=== PATIENT | female | born 1955 ===

== ENCOUNTER 2021-12-08 13:05 | Outpatient (CLI) | payer BC, SELFPAY ==
--- NOTE | 2021-12-08 13:30 | CRLHL7_ITS ---
For Patients: As a result of the Century Cures Act, medical imaging exams and procedure reports are released immediately into your electronic medical record. You may view this report before your referring provider. If you have questions, please contact your health care provider. DXA BONE MINERAL DENSITY STUDY Current height (in): 65.0. Weight (lb): 115.0. Menopause age: 51. Ethnicity: White. 1. Have you had a previous hip or vertebral fracture? No. 2. Have you had any fractures during your adult life which did not result from significant trauma (e.g., auto accident)? No. 3. Did either of your parents have a hip fracture? No. 4. Do you smoke? No. 5. Have you ever taken Glucocorticoids? No. 6. Do you have rheumatoid arthritis? No. 7. Do you have secondary osteoporosis? No. 8. Do you drink 3 or more alcoholic drinks per day? No. 9. Are you being treated for osteoporosis? No. 10. Have you ever taken any of the following medications: Actonel, Evista, Fosamax, Miacalcin, Reclast, Boniva, Forteo, HRT (i.e. estrogen/hormone therapy), Protelos, Prolia, Vitamin D, Calcium, other ??? please specify. ANSWER: Yes, Fosamax, vitamin D, calcium. 11. Do you have any of the following medical conditions: Anorexia or bulimia, asthma or emphysema, end stage renal disease, hyperparathyroidism, any seizure disorders, cancer, inflammatory bowel diseases, hysterectomy, other ??? please specify. ANSWER: No. 12. What was your maximum height (inches)? 66. 13. Do you perform weight bearing exercise regularly? No. 14. Do you regularly consume dairy products? No. 15. Do you drink caffeinated beverages? No. 16. At what age did your period start? 13. 17. Are you premenopausal? No. 18. How many full term pregnancies have you had? 2. 19. Have you ever missed your period for more than 6 months in a row (not including or menopause)? No. TECHNIQUE: Bone mineral density study was performed using the [employer]. FINDINGS: The results of the study expressed as bone mineral density (BMD) are as follows: Lumbar spine L1 to L4: BMD: 0.632 g/cm2. T-score: -3.8. Z-score: -2.0. Neck Left: BMD: 0.496 g/cm2. T-score: -3.2. Z-score: -1.6. Right: BMD: 0.504 g/cm2. T-score: -3.1. Z-score: -1.6. Total Left: BMD: 0.626 g/cm2. T-score: -2.6. Z-score: -1.3. Right: BMD: 0.641 g/cm2. T-score: -2.5. Z-score: -1.2. IMPRESSION: Osteoporosis. Carlos Eduardo Rivero M.D. Diagnostic Radiologist [email or web address] / be/Dictated by: Carlos Eduardo Rivero MD @ 12/08/2021 3:42:00 PM (Electronically Signed)
== END 2021-12-08 13:06 | disposition home or self-care (01) ==
PROVIDERS: PCP Emergency Medicine; Visit Provider Emergency Medicine
DX: M85.9 Disorder of bone density and structure, unspecified (principal); M81.0 Age-related osteoporosis without current pathological fracture
CPT/HCPCS: 77080

== ENCOUNTER 2021-12-10 11:22 | Outpatient (CLI) | payer BC, SELFPAY ==
[2021-12-10 13:04] LABS: Chloride* 103 mmol/L (96-114); Potassium* 4.5 mmol/L (3.6-5.1); Sodium* 141 mmol/L (135-149)
[2021-12-10 13:06] LABS: Cholesterol* 291 mg/dL (90-199)
[2021-12-10 13:07] LABS: Blood Urea Nitrogen* 21 mg/dL (7-30); Calcium* 9.9 mg/dL (8.4-10.6); Carbon Dioxide* 32 mmol/L (20-32); Creatinine* 0.9 mg/dL (0.5-1.5); Estimated Glomerular Filt Rate 71 ml/min; Glucose* 85 mg/dL (60-115); Triglycerides* 85 mg/dL (40-149)
[2021-12-10 13:08] LABS: HDL Cholesterol* 81 mg/dL (>=50); LDL Cholesterol Calculated 193 mg/dL (<100)
[2021-12-10 13:17] LABS: Vitamin D 25 Hydroxy* 67 ng/mL (30-80)
== END 2021-12-10 11:23 | disposition home or self-care (01) ==
PROVIDERS: PCP Emergency Medicine; Visit Provider Emergency Medicine
DX: E78.5 Hyperlipidemia, unspecified (principal); M85.9 Disorder of bone density and structure, unspecified; E05.00 Thyrotoxicosis with diffuse goiter without thyrotoxic crisis or storm
CPT/HCPCS: 80048; 80061; 82306; 84443

== ENCOUNTER 2021-12-14 14:48 | Outpatient (CLI) | payer BC, SELFPAY ==
[2021-12-14 21:38] LABS: Albumin* 4.5 g/dL (3.3-5.0)
[2021-12-14 21:41] LABS: Alkaline Phosphatase* 110 U/L (40-150); Aspartate Amino Transferase* 29 U/L (12-35); Bilirubin Total* 0.2 mg/dL (0.1-1.5); Phosphorus* 4.1 mg/dL (2.5-4.5); Total Protein* 6.9 g/dL (6.0-8.3)
[2021-12-14 21:42] LABS: Alanine Aminotransferase* 19 U/L (4-35)
== END 2021-12-14 14:49 | disposition home or self-care (01) ==
PROVIDERS: PCP Emergency Medicine; Visit Provider Emergency Medicine
DX: E78.5 Hyperlipidemia, unspecified (principal); M81.0 Age-related osteoporosis without current pathological fracture; Z82.49 Family history of ischemic heart disease and other diseases of the circulatory system
CPT/HCPCS: 80076; 84100

== ENCOUNTER 2022-03-23 10:29 | Outpatient (CLI) | payer BC, SELFPAY ==
--- NOTE | 2022-03-23 10:45 | CRLHL7_ITS ---
For Patients: As a result of the Century Cures Act, medical imaging exams and procedure reports are released immediately into your electronic medical record. You may view this report before your referring provider. If you have questions, please contact your health care provider. BILATERAL SCREENING MAMMOGRAM WITH COMPUTER-AIDED DETECTION AND TOMOSYNTHESIS TECHNIQUE: CC and MLO views were obtained. These mammographic images have been obtained using full-field digital technique. These mammographic images were interpreted with the benefit of computer-aided detection. Breast Tomosynthesis was used in this interpretation. COMPARISON FILM: No comparison available. FINDINGS: There are scattered areas of fibroglandular density IMPRESSION: There is no radiographic evidence for malignancy. ASSESSMENT: BI-RADS Category 1: Negative RECOMMENDATION: Routine screening mammogram in 1 year. A lay language report of this examination will be provided to the patient. Carlos Eduardo Rivero M.D. Diagnostic Radiologist [email or web address] Transcribed: 2:01 p.tammy meza/Dictated by: Carlos Eduardo Rivero MD @ 03/24/2022 10:13:00 AM (Electronically Signed)
== END 2022-03-23 10:30 | disposition home or self-care (01) ==
LOC: MAMMO 10:31
PROVIDERS: PCP Emergency Medicine; Visit Provider Emergency Medicine
DX: Z12.31 Encounter for screening mammogram for malignant neoplasm of breast (principal)
CPT/HCPCS: 77063; 77067

== ENCOUNTER 2022-11-03 14:07 | Outpatient (CLI) | payer BC, SELFPAY | END 2022-11-03 14:08 | disposition home or self-care (01) | PROVIDERS: PCP Internal Medicine; Visit Provider Internal Medicine | DX: Z00.00 Encounter for general adult medical examination without abnormal findings (principal); E78.5 Hyperlipidemia, unspecified; M81.0 Age-related osteoporosis without current pathological fracture; R19.7 Diarrhea, unspecified | CPT/HCPCS: 80061; 82306 ==

== ENCOUNTER 2022-11-18 13:30 | Outpatient (CLI) | payer BC, SELFPAY ==
--- OUTSIDE RECORDS SUMMARY | 2022-11-20 03:34 | XMS_ITS | Continuity of Care Document ---
Author Name Unknown Organization [facility] Address [address] [address] [place] [address] Phone Care Team Providers Care Chief Medical Director Name Role Phone Unavailable Unavailable Unavailable Advance Directives Directive Yes / No Effective Date File Name No Information Encounters Encounter Description Practice Location Reason(s) For Visit Diagnoses Date Provider Providers Copied on Encounter [facility], [address] [address], [place], [place], [id number], [place] tel:[phone] [facility] No Information Oct- 2 No Information Family History Family Member Type Diagnosis Age At Onset No Information Payers Payer name Insurance type Covered alliance party ID Authoriza tion(s) No Information Social History Type Description Quantity Date Captured Comments Sex Female Smoking Status No Information Chief Complaint And Reason For Visit No Information Reason For Referral Reason For Referral No Information History Of Present Illness Encounter Date Complaint History Of Prese nt Illness No Information Functional Status Date Functional Assessmen t No Information Instructions Date Instruction Additional Infor mation No Information Assessments Type Assessment Date No Information Patient Care Teams Name Effective Dates (start - stop) Status Members No Information
== END 2022-11-18 13:31 | disposition home or self-care (01) ==
LOC: NFLDREF 11-20 03:32
PROVIDERS: PCP Internal Medicine; Referring Provider Internal Medicine; Visit Provider Internal Medicine
DX: R19.7 Diarrhea, unspecified (principal)
CPT/HCPCS: 80053; 87045; 87046; 87077; 87177; 87209; 87427; 87493